=== PATIENT | female | born 1950 | race Asian ===

== ENCOUNTER 2017-01-29 21:03 | Emergency (ER) | payer OTHER ==
[2017-01-29 21:24] VITALS: BP 140/82; PULSE 70; TEMP 98.2; BMI 24.7
[2017-01-29] MEDS ORDERED: ALBUTEROL SO4 2.5/IPRATROPIUM 0.5 INH SOL 3 ML VIAL.NEB. NEB ONE ×2 (21:34→21:38)
--- NOTE | 2017-01-29 22:02 | PDOC ---
History of Present Illness - General Chief Complaint: Cold Symptoms Stated Complaint: Shortness of Breath Time Seen by Provider: 01/29/17 21:31 History Source: Patient Exam Limitations: No Limitations - History of Present Illness Initial Comments: 01/29/17 21:59 CC NASAL CONGESION AND WHEEZING X 1 DAY Timing/Duration: reports: 4-6 hours Severity: Yes: mild Presenting Symptoms: Yes: runny nose, persistent cough. No: fever, ear pain, sore throat Past History - Past History Allergies/Adverse Reactions: Allergies No Known Allergies Allergy (Verified 07/18/15 06:37) Home Medications: Ambulatory Orders Baclofen 10 mg PO HS 07/12/15 Gabapentin [Neurontin] 300 mg PO BID 07/12/15 Albuterol Sulfate [Proair Respiclick] 90 mcg IH ASDIR 01/29/17 - Social History Smoking Status: Current some day smoker Number of Cigarettes Smoked Per Day: 5 Review of Systems - Review of Systems Constitutional: No: Chills, Fever HEENTM: Yes: Nose Congestion. No: Throat Pain, Throat Swelling Respiratory: Yes: Cough, Wheezing Cardiac (ROS): No: Symptoms Reported *Physical Exam - Vital Signs Last Vital Signs Temp Pulse Resp BP Pulse Ox 98.2 F 70 18 140/82 100 01/29/17 21:15 01/29/17 21:15 01/29/17 21:15 01/29/17 21:15 01/29/17 21:15 - Physical Exam General Appearance: Yes: Appropriately Dressed. No: Apparent Distress HEENT: positive: TMs Normal, Pharynx Normal, Nasal Congestion, Rhinorrhea, Sinus Tenderness Neck: negative: Tender, Rigid Respiratory/Chest: positive: Lungs Clear, Wheezing ED Treatment Course - Medications Given in the ED: ED Medications Discontinued Medications Generic Name Dose Route Start Last Admin Trade Name Freq PRN Reason Stop Dose Admin Albuterol/Ipratropium 1 amp 01/29/17 21:34 01/29/17 21:45 Duoneb - NEB 01/29/17 21:35 1 amp ONCE ONE Administration Medical Decision Making - Medical Decision Making 01/29/17 22:00 NO WHEEZING ; LUNGS CLEAR POST COMBIVENT X 1 DAYS *DC/Admit/Observation/Transfer Diagnosis at time of Disposition: Bronchospasm Sinusitis Qualifiers: Sinusitis location: unspecified location Chronicity: acute Recurrence: not specified as recurrent Qualified Code(s): J01.90 - Acute sinusitis, unspecified - Discharge Dispostion Disposition: HOME Condition at time of disposition: Stable Admit: No - Referrals Referrals: Cee Coleman MD [Primary Care Provider] - - Patient Instructions Additional Instructions: REST; USE PROAIR NEEDED; IF STARTING AFRIN USE FOR ONLY 3 DAYS; RETURN FOR INCREASED SYMPTOMS - Post Discharge Activity
== END 2017-01-29 22:06 | disposition home or self-care (01) ==
LOC: JERFT 21:03
PROC: 3E0F7GC Introduction of Other Therapeutic Substance into Respiratory Tract, Via Natural or Artificial Opening (ICD-10-PCS; principal; 2017-01-29)
DX: J01.90 Acute sinusitis, unspecified (principal); J98.01 Acute bronchospasm
CPT/HCPCS: 99281-25